=== PATIENT | female | born 1985 | race Caucasian/White ===

== ENCOUNTER 2024-02-04 07:40 | Inpatient (IN) | payer OTHER ==
[2024-02-04] MEDS: ELECTROLYTE-148 SOLN 1,000 ML IV SCH (08:35)
[2024-02-04 09:30] VITALS: BMI 44.2
[2024-02-04] MEDS: CITRIC ACID/SODIUM CITRATE 30 ML UNIT-DOSE CUP PO ONE (10:15)
[2024-02-04] MEDS ORDERED: IBUPROFEN 600 MG TABLET (FP) PO PRN (10:32)
[2024-02-04] MEDS ORDERED: ONDANSETRON 4 MG/2 ML VIAL IVPUSH PRN (10:32)
[2024-02-04] MEDS ORDERED: LIGASURE IMPACT TP ONE (11:05)
[2024-02-04] MEDS ORDERED: FENTANYL CITRATE/PF 50 MCG/ML VIAL ONE (11:10)
[2024-02-04] MEDS ORDERED: morphine SULFATE/PF 1 MG/2 ML (2cc Syringe - QUVA) ONE (11:10)
[2024-02-04] MEDS ORDERED: OXYTOCIN 10 UNITS/ML VIAL ONE (11:21)
[2024-02-04] MEDS ORDERED: ONDANSETRON 4 MG/2 ML VIAL ONE (11:21)
[2024-02-04] MEDS ORDERED: ceFAZolin SODIUM 1 GM VIAL ONE (11:21)
[2024-02-04] MEDS ORDERED: KETOROLAC TROMETHAMINE 30 MG/1 ML VIAL ONE (11:21)
[2024-02-04 12:37] LABS: CORD BASE EXCESS -5.8 mmol/L (0-2); CORD HCO3 21.9 mmHg (20-29); CORD PCO2 51.1 mmHg (30-78); CORD pH 7.249 (7.14-7.44)
[2024-02-04 12:38] LABS: CORD BASE EXCESS -3.8 mmol/L (0-2); CORD HCO3 21.7 mmHg (20-29); CORD PCO2 41.1 mmHg (30-78); CORD pH 7.34 (7.14-7.44)
[2024-02-04] MEDS: ACETAMINOPHEN 1000 MG/100 ML BAG IVPB ONE (13:35)
[2024-02-04] MEDS ORDERED: OXYTOCIN 20 UNITS in 0.9% NS 20 UNIT/1,000 ML INFUS.BAG IV ONE (13:38)
[2024-02-04] MEDS ORDERED: ACETAMINOPHEN INJECTION 100 ML ONE (13:38)
[2024-02-04] MEDS ORDERED: METHYLERGONOVINE MALEATE 0.2 MG/1 ML AMP IM PRN (13:51)
[2024-02-04] MEDS: OXYTOCIN 20 UNITS in 0.9% NS 20 UNIT/1,000 ML INFUS.BAG IV SCH (14:30)
[2024-02-04] MEDS: ACETAMINOPHEN 325 MG TABLET (FP) PO SCH (14:31)
[2024-02-04] MEDS: SIMETHICONE 80 MG TAB.CHEW (FP) PO PRN (18:09)
[2024-02-04] MEDS: IBUPROFEN 600 MG TABLET (FP) PO SCH (20:22)
[2024-02-04] MEDS: morphine SULFATE/PF 1 MG/2 ML (2cc Syringe - QUVA) EP ONE (21:39)
[2024-02-04] MEDS: IBUPROFEN 800 MG/8 ML IJ IVPB ONE (21:39)
[2024-02-04] MEDS: ACETAMINOPHEN 325 MG TABLET (FP) PO PRN (22:17)
[2024-02-04] MEDS: HEPARIN NA (PORCINE) 5,000 UNITS/ML 1ML VIAL SQ SCH (22:33)
[2024-02-05] MEDS: LEVOTHYROXINE NA 75 MCG TABLET (FP) PO SCH (06:20)
[2024-02-05 07:30] LABS: BASO % 0.4 % (0-2.0); EOS % 1.4 % (0-4.5); HEMATOCRIT 32.3 % (32.4-45.2); HEMOGLOBIN 11.2 GM/dL (10.7-15.3); LYMPH % 18.5 % (8-40); MCH 29.5 pg (25.7-33.7); MCHC 34.7 g/dl (32.0-36.0); MEAN CELL VOLUME 85.1 fl (80-96); MEAN PLT VOLUME 8.6 fl (7.5-11.1); MONO % 9.8 % (3.8-10.2); NEUT % 69.9 % (42.8-82.8); PLATELET COUNT 155 10^3/uL (134-434); RBC 3.79 M/mm3 (3.60-5.2); RDW 14.9 % (11.6-15.6); WHITE BLOOD COUNT 9.9 K/mm3 (4.0-10.0)
[2024-02-05] MEDS ORDERED: BISACODYL 10 MG SUPP.RECT RC PRN (13:51)
[2024-02-06 00:07] VITALS: PULSE 87; TEMP 98.3
[2024-02-06] MEDS: oxyCODONE HCL 5 MG TABLET PO PRN (02:43)
[2024-02-06] MEDS: LEVOTHYROXINE NA 75 MCG TABLET (FP) PO SCH (06:13)
[2024-02-06 11:14] VITALS: BP 100/67; RESP 18
== END 2024-02-06 12:20 | disposition home or self-care (01) | DRG 540 ==
LOC: JLDR 07:40 → J3W 15:00
PROVIDERS: ADMIT Obstetrics & Gynecology; ATTEND Obstetrics & Gynecology
PROC: 10D00Z1 Extraction of Products of Conception, Low, Open Approach (ICD-10-PCS; principal; 2024-02-04)
PROC: 0UT70ZZ Resection of Bilateral Fallopian Tubes, Open Approach (ICD-10-PCS; 2024-02-04)
DX: O34.211 Maternal care for low transverse scar from previous cesarean delivery (principal); O24.424 Gestational diabetes mellitus in childbirth, insulin controlled; Z3A.38 38 weeks gestation of pregnancy; Z37.0 Single live birth; Z30.2 Encounter for sterilization
CPT/HCPCS: 36415; 36600; 59409; 80053; 82803; 82962; 85025; 85027; 85610; 85730; 86780; 86787; 86803; 86850; 86900; 86901; 87389; 88305-TC; 88307-TC; 94010; J0131; J1644

== ENCOUNTER 2024-02-18 16:26 | Emergency (ER) | payer OTHER ==
[2024-02-18 16:49] VITALS: BP 126/86; PULSE 79; RESP 19; TEMP 98.3; BMI 40.4
[2024-02-18 19:16] LABS: BASO % 0.6 % (0-2.0); HEMOGLOBIN 12.4 GM/dL (10.7-15.3); LYMPH % 33.3 % (8-40); MCH 27.7 pg (25.7-33.7); MCHC 32.5 g/dl (32.0-36.0); MEAN CELL VOLUME 85.2 fl (80-96); MEAN PLT VOLUME 8.3 fl (7.5-11.1); NEUT % 56.1 % (42.8-82.8); PLATELET COUNT 293 10^3/uL (134-434); RBC 4.46 M/mm3 (3.60-5.2); RDW 14.5 % (11.6-15.6); WHITE BLOOD COUNT 8.3 K/mm3 (4.0-10.0)
[2024-02-18] MEDS ORDERED: ACETAMINOPHEN 325 MG TABLET (FP) ONE (19:21)
[2024-02-18 19:29] LABS: INR 1.09 (0.83-1.09); PROTHROMBIN TIME (PATIENT) 12.3 SEC (9.7-13.0)
[2024-02-18 19:32] LABS: ACTIVATED PTT 31.3 SECONDS (25.2-36.5)
[2024-02-18] MEDS: ACETAMINOPHEN 500 MG TABLET (FP) PO ONE (19:39)
[2024-02-18 19:56] LABS: CALCIUM 9.3 mg/dL (8.5-10.1)
[2024-02-18 19:57] LABS: ALBUMIN 3.7 g/dl (3.4-5.0); BLOOD UREA NITROGEN 9.8 mg/dL (7-18)
[2024-02-18 20:00] LABS: CREATININE 0.6 mg/dL (0.55-1.3)
[2024-02-18 20:01] LABS: BILIRUBIN,TOTAL 0.4 mg/dL (0.2-1)
[2024-02-18 20:02] LABS: TOT PROT 7.5 g/dl (6.4-8.2)
[2024-02-18 20:41] LABS: HIV INTERPRETATION NEGATIVE (NEGATIVE)
== END 2024-02-18 20:53 | disposition home or self-care (01) ==
LOC: JER 16:26
DX: M79.89 Other specified soft tissue disorders (principal)
CPT/HCPCS: 36415; 80053; 85025; 85610; 85730; 86803; 86850; 86900; 86901; 87389; 93971-TC; 99284-25